=== PATIENT | male | born 2000 ===

== ENCOUNTER 2021-02-20 06:25 | Emergency (ER) | payer SELFPAY ==
[~2021-02-20] VITALS: Ht 170 cm; Wt 59.0 kg
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
--- NOTE | 2021-02-20 08:20 | Diagnostic Imaging Report ---
INDICATION: Elbow pain 3 views were obtained FINDINGS: The alignment is normal. There is no fracture or dislocation. No joint effusion. Soft tissues are unremarkable. IMPRESSION: No acute fracture or dislocation. Dictated by: Dictated on workstation # [id number]
[2021-02-20 09:18] VITALS: BP 110/82
== END 2021-02-20 09:19 | disposition home or self-care (01) ==
LOC: ER 06:32
DX: S56.911A Strain of unspecified muscles, fascia and tendons at forearm level, right arm, initial encounter (principal); J45.909 Unspecified asthma, uncomplicated; V87.7XXA Person injured in collision between other specified motor vehicles (traffic), initial encounter
CPT/HCPCS: 70450; 72125; 73080; 73090